=== PATIENT | female | born 1965 | race Caucasian/White ===

== ENCOUNTER 2017-06-08 08:44 | Emergency (ER) | payer MEDICAID, OTHER ==
[~2017-06-08 08:44] MED LIST: ALAV10TA PO; BUTO1CRE PV; DOXY100T PO; FLUO-1 PO; LURA20TA PO; NAPR-576 PO
[2017-06-08 08:51] VITALS: BP 124/86; PULSE 80; RESP 20; TEMP 98.2; O2SAT 99
--- NOTE | 2017-06-08 09:04 | PD ---
HPI . right foot pain Chief Complaint: Injury Time Seen by Provider: 09:02 Travel History International Travel<30 days: No Contact w/Intl Traveler<30days: No Traveled to known affect area: No History of Present Illness HPI 52- year old female presents to the ED complaining of right foot pain that started yesterday after falling in the shower. She reports that she did not hit her head in the fall and denies and loss of consciousness. The patient reports that it is an intermittent pain that is worse with walking, describes it as an aching pain and rates it currently as a 6/10. She has tried Tylenol for the pain , but had no relief. 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 PFSH Past Medical History Arthritis: Yes Depression: Yes Herniated Disk: Yes ?: Not : 5 Para: 2 Tubal Ligation: Yes Social History Alcohol Use: No Tobacco Use: No Substance Use: No Allergies-Medications (Allergen,Severity, Reaction): Coded Allergies: peanut (Unverified Allergy, Severe, Hives, 05/30/17) sesame seed (Unverified Allergy, Severe, Hives, 05/30/17) soybean (Unverified Allergy, Severe, Hives, 05/30/17) wheat (Unverified Allergy, Severe, Hives, 05/30/17) Reported Meds & Prescriptions Reported Meds & Active Scripts Active Ibuprofen 800 Mg Tab 800 Mg PO Q8H PRN Gynazole-1 (Butoconazole Nitrate (One Dose) 2 % Cre 1 Applic PV ONCE Doxycycline Hyclate 100 mg (Doxycycline Hyclate) 100 Mg Tab 1 Tab PO Q12H 10 Days Naproxen 500 Mg Tab 500 Mg PO Q12HR PRN Reported Alavert (Loratadine) 10 Mg Tab 10 Mg PO Prozac (Fluoxetine HCl) 10 Mg Cap 10 Mg PO DAILY Latuda (Lurasidone HCl) 20 Mg Tab 20 Mg PO HS TAKE WITH FOOD (350 CALORIES OR MORE) Review of Systems General / Constitutional: No: Fever, Chills, Weight Gain, Weight Loss, Other Eyes: No: Diploplia, Blurred Vision, Photophobia, Drainage, Redness, Foreign Body Sensation, Pain, Tearing, Blind Spots, Visual changes, Blindness, Other HENT: No: Headaches, Vertigo, Lightheadedness, Sore Throat, Rhinitis, Rhinorrhea, Congestion, Nosebleed, Neck Stiffness, Neck Pain, Masses, Gingival Bleeding, Dental Difficulties, Ear Discharge, Earache, Other Cardiovascular: No: Chest Pain or Discomfort, Palpitations, Irregular Rhythm, Tachycardia, Diaphoresis, Syncope, Dyspnea on exertion, Varicosities, Edema, Cyanosis, Varicosities, Phlebitis, Claudication, Other Respiratory: No: Cough, Shortness of Breath, Wheezing, Sneezing, Orthopnea, Hemoptysis, Stridor, Night Sweats, Pleuritic Pain, Other Gastrointestinal: No: Nausea, Vomiting, Diarrhea, Abdominal Pain, Hematemesis, Hematochezia, Constipation, Changes in Bowel Habits, Indigestion, Dysphagia, Loss of Appetite, Other Genitourinary: No: Urgency, Frequency, Dysuria, Nocturia, Hematuria, Decreased Urinary Output, Oliguria, Hesitancy, Dribbling, Incontinence, Pelvic Pain, Flank Pain, Dyspareunia, Discharge, Dysmenorrhea, Menorrhagia, Metorrhagia, Vaginal Bleeding, Other Musculoskeletal: Positive: Pain (Right foot), No: Myalgias, Arthralgias, Limited ROM, Weakness, Cramping, Edema, Atrophy, Other Skin: No Rash, No Itching, No Dryness, No Lumps, No Hives, No Change in Pigmentation, No Change in nails, No Alopecia, No Lesions, No Breast Lumps, No Breast Tenderness, No Breast Swelling, No Other Neurologic: No: Weakness, Dizziness, Syncope, Focal Abnormalities, Coordination Problem, Tremor, Ataxia, Headache, Change in Mentation, Slurred Speech, Paresthesia, Incontinence, Seizures, Sensory Disturbance, Other Psychiatric: No: Anxiety, Depression, Suicidal Ideations, Disorder of Thought, Mood Disorder, Substance Abuse, Homicidal Ideation, Other Endocrine: No: Heat Intolerance, Cold Intolerance, Polyuria, Polydipsia, Other Hematologic/Lymphatic: No: Easy Bruising, Lymph Node Enlargement, Other Physical Exam Narrative GENERAL: SKIN: Warm and dry. HEAD: Atraumatic. Normocephalic. EYES: Pupils equal and round. No scleral icterus. No injection or drainage. ENT: No nasal bleeding or discharge. Mucous membranes pink and moist. NECK: Trachea midline. No JVD. CARDIOVASCULAR: Regular rate and rhythm. No S3, S4, or murmurs. RESPIRATORY: No accessory muscle use. Clear to auscultation. Breath sounds equal bilaterally. No wheezing, rales or rhonchi. GASTROINTESTINAL: Abdomen soft, non-tender, nondistended. Hepatic and splenic margins not palpable. MUSCULOSKELETAL: Mild edema to right foot. Limited ROM of right foot due to pain. 2 + pulses bilaterally. Extremities without clubbing, cyanosis. No obvious deformities. NEUROLOGICAL: Awake and alert. No obvious cranial nerve deficits. Motor grossly within normal limits. Five out of 5 muscle strength in the arms and legs. Normal speech. PSYCHIATRIC: Appropriate mood and affect; insight and judgment normal. Data Data Last Documented VS Vital Signs Date Time Temp Pulse Resp B/P (MAP) Pulse Ox O2 Delivery O2 Flow Rate FiO2 06/08/17 08:51 98.2 80 20 124/86 (99) 99 Orders Orders Foot, Complete ([id number]) (06/08/17 09:09) Ketorolac Inj (Toradol Inj) (06/08/17 09:15) Shoe Post Op (06/08/17 ) ^ Other Nursing Orders (06/08/17 09:54) Shoe Cast (06/08/17 ) MDM Medical Decision Making Medical Screen Exam Complete: Yes Emergency Medical Condition: Yes Medical Record Reviewed: Yes Differential Diagnosis Foot fracture versus Musculoskeletal Injury versus Edema Narrative Course 52-year-old female here with complaints of right foot pain. On examination she has pain over her navicular bone of the right foot. X-ray ordered to rule out injury. Last Impressions Foot X-Ray 06/08/17 09 Signed Impressions: Service Date/Time: Thursday, June 08, 2017 09:28 - CONCLUSION: Acute fifth proximal phalangeal fracture as detailed above. Anthony Coronel Jr., MD There appears to be an acute fracture of the fifth proximal phalanx. Ironically patient does not have pain in this area. Nonetheless we have renata taped it and provide her with a postop shoe. I recommend outpatient follow-up with podiatry. Ibuprofen given for pain. Patient was ambulatory upon discharge. Diagnosis Primary Impression: Toe fracture, right Qualified Codes: S92.504A - Nondisplaced unspecified fracture of right lesser toe(s), initial encounter for closed fracture Referrals: Heavy Mobile Equipment Repairer Patient Instructions: General Instructions Additional Instructions: Please return to emergency department if your symptoms return or worsen. Follow up with your primary care provider. Take medications as prescribed. Follow-up with the building dismantler. Med/Other Pt SpecificInfo: Prescription(s) given Scripts Ibuprofen (Ibuprofen) 800 Mg Tab 800 MG PO Q8H Y for Pain/Inflammation, #21 TAB 0 Refills Prov: Mina Abraham MD 06/08/17 Disposition: 01 DISCHARGE HOME Condition: Stable Deloris Gregory Jun 08, 2017 09:04
[2017-06-08] MEDS ORDERED: KETOROLAC TROMETHAMINE 60 MG/2 ML (IM) VIAL IM ONE (09:15)
--- NOTE | 2017-06-08 09:39 | RADRPT ---
EXAM DATE/TIME: 06/08/2017 09:28 [facility] COMPARISON: No previous studies available for comparison. INDICATIONS : Right foot pain after falling in the tub yesterday. MEDICAL HISTORY : Arthritis. SURGICAL HISTORY : None. ENCOUNTER: Initial ACUITY: 2 days PAIN SCORE: 6/10 LOCATION: Right top and lateral foot. FINDINGS: 3 views of the right foot reveal an acute fracture involving the proximal phalanx of the fifth toe. T he fracture is perpendicular to the long axis of the bone and parallels the articular surface of the MIP joint. No intra-articular extension. No angulation or distraction. Soft tissue swelling observed. Remaining bony structures are unremarkable. CONCLUSION: Acute fifth proximal phalangeal fracture as detailed above. Anthony Coronel Jr., MD on June 08, 2017 at 9:36 Board Certified Radiologist. This report was verified electronically.
[2017-06-08] MEDS ORDERED: IBUP800T23 PO (09:54)
== END 2017-06-08 10:24 | disposition home or self-care (01) ==
LOC: NEPK 08:44
DX: S92.511A Displaced fracture of proximal phalanx of right lesser toe(s), initial encounter for closed fracture (principal); M13.80 Other specified arthritis, unspecified site; F32.9 Major depressive disorder, single episode, unspecified; Z79.899 Other long term (current) drug therapy; W18.30XA Fall on same level, unspecified, initial encounter
CPT/HCPCS: 29550; 73630; 96372; 99284; J1885; L3260

== ENCOUNTER 2018-03-03 11:04 | Emergency (ER) | payer OTHER ==
[~2018-03-03] VITALS: Ht 175.3 cm; Wt 111.0 kg
[~2018-03-03 11:04] MED LIST changes: -ALAV10TA PO; -BUTO1CRE PV; -DOXY100T PO; -FLUO-1 PO; +FLUO10TA PO; -LURA20TA PO; +LURA40 PO; -NAPR-576 PO
[2018-03-03 11:26] VITALS: BP 127/63; PULSE 99; RESP 18; TEMP 98; O2SAT 99
[2018-03-03] MEDS ORDERED: ACETAMINOPHEN/HYDROcodone 325 MG/5 MG TAB PO ONE (11:45)
[2018-03-03] MEDS ORDERED: CYCLOBENZAPRINE HCL 10 MG TAB PO ONE (11:45)
--- NOTE | 2018-03-03 11:49 | PD ---
HPI . Back pain Chief Complaint: Back/ Neck Pain or Injury Time Seen by Provider: 11:43 Travel History International Travel<30 days: No Contact w/Intl Traveler<30days: No Traveled to known affect area: No History of Present Illness HPI Patient presents with the chief complaint of diffuse low back pain. Onset was 4 days ago. There was no injury. Pain is exacerbated by getting up and by sitting. She denies fever, IV drug abuse or radicular symptoms. She denies saddle anesthesia or overflow incontinence. Pain is moderate. Pain has been unrelieved by lidocaine patch, BenGay and Tylenol. PFSH Past Medical History Arthritis: Yes Depression: Yes Herniated Disk: Yes : 5 Para: 2 Tubal Ligation: Yes Social History Alcohol Use: No Tobacco Use: No Substance Use: No Allergies-Medications (Allergen,Severity, Reaction): Coded Allergies: peanut (Unverified Allergy, Severe, Hives, 11/12/17) sesame seed (Unverified Allergy, Severe, Hives, 11/12/17) soybean (Unverified Allergy, Severe, Hives, 11/12/17) wheat (Unverified Allergy, Severe, Hives, 11/12/17) Reported Meds & Prescriptions Reported Meds & Active Scripts Active Reported Fluoxetine (Fluoxetine HCl) 10 Mg Tab 10 Mg PO DAILY Latuda (Lurasidone) 40 Mg Tab 40 Mg PO DAILY Review of Systems Except as stated in HPI: all other systems reviewed are Neg Physical Exam Narrative GENERAL: Awake and alert and in no acute distress. SKIN: Warm and dry. HEAD: Normocephalic/atraumatic. EYES: Pupils are equal. Extraocular movements are intact. NECK: Normal range of motion. CARDIOVASCULAR: Regular rate and rhythm. RESPIRATORY: Nonlabored respirations. MUSCULOSKELETAL: Obvious discomfort with movement in her low back. The low back is diffusely tender to palpation. No point tenderness. Distally neurovascularly intact. NEUROLOGICAL: Nonfocal. PSYCHIATRIC: Appropriate mood and affect. Data Data Last Documented VS Vital Signs Date Time Temp Pulse Resp B/P (MAP) Pulse Ox O2 Delivery O2 Flow Rate FiO2 03/03/18 11:26 98.0 99 18 127/63 (84) 99 Orders Orders Acetamin-Hydrocod 325-5 Mg ([place] 5-325 (03/03/18 11:45) Cyclobenzaprine (Flexeril) (5/20/18 11:45) [facility] Medical Decision Making Medical Screen Exam Complete: Yes Emergency Medical Condition: Yes Differential Diagnosis Differential diagnosis includes but is not limited to muscular low back pain, DDD, spinal stenosis, epidural abscess, sciatica, kidney infection or stone. Narrative Course Patient presents with the chief complaint of low back pain. It is atraumatic. The pain is diffuse. She does not have any worrisome signs or symptoms such as fever, saddle anesthesia, overflow incontinence or lower extremity weakness. She will be discharged home with prescriptions for [place] and Flexeril. E- [place] queried and reviewed. Diagnosis Primary Impression: Low back pain Qualified Codes: M54.5 - Low back pain Patient Instructions: Acute Low Back Pain (DC), General Instructions Med/Other Pt SpecificInfo: Prescription(s) given Scripts Cyclobenzaprine (Flexeril) 10 Mg Tab 10 MG PO TID for Muscle Spasm, #30 TAB 0 Refills Prov: Bailee Polanco MD 03/03/18 Hydrocodone-Acetaminophen ([place]) 5 Mg-325 Mg Tab 1 TAB PO Q4H Y for PAIN, #12 TAB 0 Refills Prov: Bailee Polanco MD 03/03/18 Disposition: 01 DISCHARGE HOME Condition: Stable Bailee Polanco MD March 03, 2018 11:49
[2018-03-03] MEDS ORDERED: CYCL10TA PO (11:54)
[2018-03-03] MEDS ORDERED: NORC5TAB PO (11:54)
== END 2018-03-03 12:54 | disposition home or self-care (01) ==
LOC: NEPD 11:04
DX: M54.5 Low back pain (principal); Z87.39 Personal history of other diseases of the musculoskeletal system and connective tissue; F32.9 Major depressive disorder, single episode, unspecified
CPT/HCPCS: 99283

== ENCOUNTER 2018-03-12 20:23 | Emergency (ER) | payer OTHER ==
[~2018-03-12 20:23] MED LIST changes: +CYCL10TA PO; +NORC5TAB PO
[2018-03-12 20:32] VITALS: BP 141/60; PULSE 112; RESP 18; TEMP 100.2; O2SAT 96
[2018-03-12] MEDS ORDERED: SODIUM CHLOR 0.9% 1000 ML INJ 1,000 ML IV ONE (21:46)
[2018-03-12] MEDS ORDERED: SODIUM CHLOR 0.9% 1000 ML INJ 800 ML IV ONE (21:46)
--- NOTE | 2018-03-12 21:51 | PD ---
HPI Chief Complaint: Dizziness Time Seen by Provider: 21:41 Travel History International Travel<30 days: No Contact w/Intl Traveler<30days: No Traveled to known affect area: No History of Present Illness HPI 52-year-old female here for evaluation of fever, cough, chills, generalized malaise. Symptoms have been going on for the last 3 days. Cough is productive of yellowish sputum. She denies abdominal pain, nausea, vomiting, or diarrhea. She has been taking DayQuil and NyQuil, last dose was yesterday. She has history of melanoma that was removed from her left anterior thigh as well as lymph node biopsy in the left thigh that was performed in January of this year at [facility]. PFSH Past Medical History Arthritis: Yes Depression: Yes Herniated Disk: Yes Immunizations Current: Yes Tetanus Vaccination: Unknown Influenza Vaccination: Yes ?: Unknown : 5 Para: 2 Tubal Ligation: Yes Past Surgical History Hysterectomy: Yes (tubal ligation) Social History Alcohol Use: No Tobacco Use: No Substance Use: No Allergies-Medications (Allergen,Severity, Reaction): Coded Allergies: peanut (Unverified Allergy, Severe, Hives, 03/12/18) sesame seed (Unverified Allergy, Severe, Hives, 03/12/18) soybean (Unverified Allergy, Severe, Hives, 03/12/18) wheat (Unverified Allergy, Severe, Hives, 03/12/18) Reported Meds & Prescriptions Reported Meds & Active Scripts Active Flexeril (Cyclobenzaprine HCl) 10 Mg Tab 10 Mg PO TID [place] (Hydrocodone-Acetaminophen) 5 Mg-325 Mg Tab 1 Tab PO Q4H PRN Reported Fluoxetine (Fluoxetine HCl) 10 Mg Tab 10 Mg PO DAILY Latuda (Lurasidone) 40 Mg Tab 40 Mg PO DAILY Review of Systems Except as stated in HPI: all other systems reviewed are Neg Physical Exam Narrative GENERAL: Well-developed, well-nourished, awake, alert, no apparent distress. SKIN: Focused skin assessment warm/dry. Left anterior/proximal thigh with a wound with the patient's lymph node biopsy was performed. There is no surrounding warmth or erythema, no fluctuance or induration. Left anterior/ distal thigh with large/healed/surgical incision where the melanoma was removed without warmth, without erythema, without fluctuance or induration. HEAD: Atraumatic. Normocephalic. EYES: Pupils equal and round. No scleral icterus. No injection or drainage. ENT: No nasal bleeding or discharge. Mucous membranes pink and dry. Normal pharynx. NECK: Trachea midline. No JVD. No nuchal rigidity. CARDIOVASCULAR: Regular rate and rhythm. No murmur appreciated. RESPIRATORY: No accessory muscle use. Clear to auscultation. Breath sounds equal bilaterally. GASTROINTESTINAL: Abdomen soft, non-tender, nondistended. MUSCULOSKELETAL: No obvious deformities. No clubbing. No cyanosis. No edema. NEUROLOGICAL: Awake and alert. No obvious cranial nerve deficits. Motor grossly within normal limits. Normal speech. PSYCHIATRIC: Appropriate mood and affect; insight and judgment normal. Data Data Last Documented VS Vital Signs Date Time Temp Pulse Resp B/P (MAP) Pulse Ox O2 Delivery O2 Flow Rate FiO2 03/12/18 20:32 100.2 112 18 141/60 (87) 96 Orders Orders Sepsis Workup Initiated (03/12/18 ) Complete Blood Count With Diff (03/12/18 21:46) Comprehensive Metabolic Panel (03/12/18 21:46) Lactic Acid Sepsis Protocol (03/12/18 21:46) Urinalysis - C+S If Indicated (03/12/18 21:46) Influenzae A/B Antigen (03/12/18 21:46) Blood Culture (03/12/18 21:46) Chest, Single Ap (03/12/18 21:46) Ecg Monitoring (03/12/18 21:46) Iv Access Insert/Monitor (03/12/18 21:46) Oximetry (03/12/18 21:46) Acetaminophen (Tylenol) (03/12/18 22:00) Sodium Chlor 0.9% 1000 Ml Inj (Ns 1000 M (03/12/18 21:46) Sodium Chlor 0.9% 1000 Ml Inj (Ns 1000 M (03/12/18 21:46) Urine Culture (03/12/18 22:00) Ceftriaxone Inj (Rocephin Inj) (03/12/18 23:15) Guaifen-Cod 200-20 Mg/10ml Liq (Robituss (03/12/18 23:15) Labs Laboratory Tests Test 03/12/18 22:00 White Blood Count 5.2 TH/MM3 Red Blood Count 5.11 MIL/MM3 Hemoglobin 13.4 GM/DL Hematocrit 41.5 % Mean Corpuscular Volume 81.3 FL Mean Corpuscular Hemoglobin 26.3 PG Mean Corpuscular Hemoglobin Concent 32.3 % Red Cell Distribution Width 14.6 % Platelet Count 265 TH/MM3 Mean Platelet Volume 7.8 FL Neutrophils (%) (Auto) 64.7 % Lymphocytes (%) (Auto) 20.6 % Monocytes (%) (Auto) 11.5 % Eosinophils (%) (Auto) 2.3 % Basophils (%) (Auto) 0.9 % Neutrophils # (Auto) 3.4 TH/MM3 Lymphocytes # (Auto) 1.1 TH/MM3 Monocytes # (Auto) 0.6 TH/MM3 Eosinophils # (Auto) 0.1 TH/MM3 Basophils # (Auto) 0.0 TH/MM3 CBC Comment DIFF FINAL Differential Comment Urine Color YELLOW Urine Turbidity HAZY Urine pH 5.5 Urine Specific [place] 1.027 Urine Protein 30 mg/dL Urine Glucose (UA) NEG mg/dL Urine Ketones TRACE mg/dL Urine Occult Blood SMALL Urine Nitrite NEG Urine Bilirubin NEG Urine Urobilinogen 2.0 MG/DL Urine Leukocyte Esterase LARGE Urine RBC 12 /hpf Urine WBC 25 /hpf Urine Squamous Epithelial Cells 17 /hpf Urine Bacteria RARE /hpf Urine Hyaline Casts 2 /lpf Urine Mucus MOD /lpf Microscopic Urinalysis Comment CULTURE INDICATED Blood Urea Nitrogen 16 MG/DL Creatinine 0.88 MG/DL Random Glucose 94 MG/DL Total Protein 8.4 GM/DL Albumin 3.5 GM/DL Calcium Level 9.0 MG/DL Alkaline Phosphatase 238 U/L Aspartate Amino Transf (AST/SGOT) 34 U/L Alanine Aminotransferase (ALT/SGPT) 28 U/L Total Bilirubin 0.2 MG/DL Sodium Level 139 MEQ/L Potassium Level 3.9 MEQ/L Chloride Level 105 MEQ/L Carbon Dioxide Level 27.3 MEQ/L Anion Gap 7 MEQ/L Estimat Glomerular Filtration Rate 67 ML/MIN Lactic Acid Level 0.8 mmol/L [facility] Medical Decision Making Medical Screen Exam Complete: Yes Emergency Medical Condition: Yes Medical Record Reviewed: Yes Differential Diagnosis Influenza, viral illness, pneumonia, bronchitis, cellulitis, Narrative Course Vital signs reviewed. CBC is unremarkable. CMP is markable for alk phos 238, otherwise unremarkable. Lactic acid is 0.8. UA suggestive of UTI. Influenza is negative. Chest x-ray: No acute intrathoracic disease. The patient was made aware of all findings. She is overall very well- appearing. She is not in any respiratory distress. She was given 1 g of IV Rocephin here in the emergency department and discharged home with a prescription for Ceftin for her UTI and URI. PMD follow-up this week. She was advised on when to return to the emergency department. She verbalizes understanding and agreement with plan. Diagnosis Primary Impression: UTI (urinary tract infection) Qualified Codes: N39.0 - Urinary tract infection, site not specified; R31.9 - Hematuria, unspecified Additional Impression: URI (upper respiratory infection) Qualified Codes: J06.9 - Acute upper respiratory infection, unspecified Referrals: Primary Care Physician 3 days Additional Instructions: Follow-up with your primary care physician this week. Stay hydrated with plenty of fluids. Keep fever under control with Tylenol and ibuprofen. Take antibiotic as prescribed. Return to the emergency department for worsening symptoms or any other concerns. Scripts Guaifenesin-Codeine Liq (Guaifenesin AC Liq) 100-10 Mg/5 Ml Syrp 10 ML PO Q6H Y for COUGH, #100 ML 0 Refills Prov: Calvin Brady MD 03/12/18 Cefuroxime (Ceftin) 250 Mg Tab 500 MG PO BID for 7 Days, #28 TAB Prov: Calvin Brady MD 03/12/18 Disposition: 01 DISCHARGE HOME Condition: Stable Calvin Brady MD March 12, 2018 21:51
[2018-03-12] MEDS ORDERED: ACETAMINOPHEN 325 MG TAB PO ONE (22:00)
[2018-03-12 22:30] LABS: AUTOMATED NEUTROPHIL # 3.4 TH/MM3 (1.8-7.7); BASOPHIL % 0.9 % (0.0-2.0); EOSINOPHIL # 0.1 TH/MM3 (0-0.4); EOSINOPHIL % 2.3 % (0.0-4.0); HEMATOCRIT 41.5 % (35.0-46.0); HEMOGLOBIN 13.4 GM/DL (11.6-15.3); LYMPH % 20.6 % (9.0-44.0); LYMPHOCYTE # 1.1 TH/MM3 (1.0-4.8); MEAN CELL VOLUME 81.3 FL (80.0-100.0); MEAN CORPUSCULAR HEMOGLOBIN 26.3 PG (27.0-34.0); MEAN CORPUSCULAR HGB CONC 32.3 % (32.0-36.0); MEAN PLATELET VOLUME 7.8 FL (7.0-11.0); MONO % 11.5 % (0.0-8.0); MONOCYTE # 0.6 TH/MM3 (0-0.9); NEUT % 64.7 % (16.0-70.0); PLATELET COUNT 265 TH/MM3 (150-450); RED BLOOD COUNT 5.11 MIL/MM3 (4.00-5.30); RED CELL DISTRIBUTION WIDTH 14.6 % (11.6-17.2); WHITE BLOOD COUNT 5.2 TH/MM3 (4.0-11.0)
[2018-03-12 22:31] LABS: BACTERIA, URINE RARE /hpf; BILIRUBIN, URINE NEG (NEG); BLOOD, URINE SMALL (NEG); GLUCOSE,URINE NEG (NEG); HYALINE CAST, URINE 2 /lpf (RARE); KETONE, URINE TRACE mg/dL (NEG); MUCUS URINE MOD /lpf (OCC); NITRITE,URINE NEG (NEG); PH, URINE 5.5 (5.0-8.5); SQUAMOUS EPITHELIAL CELL URINE 17 /hpf (0-5); URINE COLOR YELLOW (YELLW/STRAW); URINE LEUKOCYTE ESTERASE LARGE (NEG)
--- NOTE | 2018-03-12 22:43 | RADRPT ---
EXAM DATE: 03/12/2018 10:20 PM EDT AGE/SEX: 52 years / Female INDICATIONS: Fever. Congestion. CLINICAL DATA: This is the patient's initial encounter. Patient reports that signs and symptoms have been present for 3 days and indicates a pain score of 6/10. MEDICAL/SURGICAL HISTORY: None. None. COMPARISON: No prior [place] exams available for comparison. FINDINGS: A single AP view of the chest demonstrates the lungs to be symmetrically aerated without evidence of mass, infiltrate or effusion. The cardiomediastinal contours are unremarkable. Osseous structures a re intact. CONCLUSION: No acute intrathoracic disease. Electronically signed by: Salvatore Soler MD 03/12/2018 10:41 PM EDT
[2018-03-12 22:44] LABS: ALBUMIN 3.5 GM/DL (3.4-5.0); AST (GOT) 34 U/L (15-37); BICARBONATE 27.3 MEQ/L (21.0-32.0); BLOOD UREA NITROGEN 16 MG/DL (7-18); CHLORIDE 105 MEQ/L (98-107); CREATININE 0.88 MG/DL (0.50-1.00); GLOMERULAR FILTRATION RATE 67 ML/MIN (>89); GLUCOSE,RANDOM 94 MG/DL (74-106); SODIUM (NA) 139 MEQ/L (136-145)
[2018-03-12 22:49] LABS: ALKALINE PHOSPHATASE 238 U/L (45-117); ALT (GPT) 28 U/L (10-53); TOTAL BILIRUBIN ADULT 0.2 MG/DL (0.2-1.0); TOTAL PROTEIN 8.4 GM/DL (6.4-8.2)
[2018-03-12] MEDS ORDERED: CEFU1TAB18 PO (23:14)
[2018-03-12] MEDS ORDERED: GUAISYP4 PO (23:14)
[2018-03-12] MEDS ORDERED: cefTRIAXone INJ 1,000 MG in SODIUM CHLORIDE 0.9% INJ 100 ML IV ONE (23:15)
[2018-03-12] MEDS ORDERED: guaiFENesin/CODEINE SYRUP 200 MG/20 MG/10 ML CUP PO ONE (23:15)
[2018-03-12 23:57] VITALS: BP 133/60; TEMP 98.9
== END 2018-03-13 00:13 | disposition home or self-care (01) ==
LOC: NEPC 20:23
DX: N39.0 Urinary tract infection, site not specified (principal); J06.9 Acute upper respiratory infection, unspecified; F32.9 Major depressive disorder, single episode, unspecified
CPT/HCPCS: 71045; 80053; 81001; 83605; 85025; 87040; 87086; 87804; 96361; 96365; 99284; J0696; J7030